=== PATIENT | female | born 1965 | race Caucasian/White ===

== ENCOUNTER 2023-06-09 20:32 | Emergency (ER) | payer BC, OTHER ==
[~2023-06-09] VITALS: Ht 170.1 cm; Wt 122.5 kg
[2023-06-09] MEDS ORDERED: BAYER ASPIRIN C81 MG PO (20:42)
[2023-06-09] MEDS ORDERED: HYDR25T PO (20:43)
[2023-06-09] MEDS ORDERED: CEPHALEXIN500 M1 PO (22:08)
== END 2023-06-09 22:24 | disposition home or self-care (01) ==
LOC: ED 20:32
DX: S61.211A Laceration without foreign body of left index finger without damage to nail, initial encounter (principal); Z79.82 Long term (current) use of aspirin; Z79.899 Other long term (current) drug therapy; Z98.51 Tubal ligation status; W26.8XXA Contact with other sharp object(s), not elsewhere classified, initial encounter; Y93.89 Activity, other specified; Y92.89 Other specified places as the place of occurrence of the external cause; Y99.8 Other external cause status